=== PATIENT | female | born 1980 | race Caucasian/White ===

== ENCOUNTER 2024-10-30 12:50 | Emergency (ER) | payer OTHER ==
[2024-10-30 12:56] VITALS: BP 113/61; PULSE 74; RESP 20; TEMP 98.4; BMI 30.2
[2024-10-30] MEDS ORDERED: diphenhydrAMINE HCL 25 MG CAPSULE (FP) PO ONE (14:12)
[2024-10-30] MEDS ORDERED: predniSONE 20 MG TABLET (UD) ONE (14:12)
[2024-10-30] MEDS: diphenhydrAMINE HCL 50 MG CAPSULE PO ONE (14:15)
[2024-10-30] MEDS: predniSONE 20 MG TABLET (UD) PO ONE (14:15)
== END 2024-10-30 14:40 | disposition home or self-care (01) ==
LOC: JERFT 12:50
DX: R21 Rash and other nonspecific skin eruption (principal); L29.9 Pruritus, unspecified
CPT/HCPCS: 99283-25